=== PATIENT | female | born 1995 | race Caucasian/White ===

== ENCOUNTER 2023-05-05 16:32 | Observation (INO) | payer OTHER, BC, MEDICAID, SELFPAY ==
[2023-05-05] VITALS (8 sets, daily range): BP systolic 102–124; BP diastolic 60–70; PULSE 75–91; BMI 31.2
--- NOTE | 2023-05-05 17:06 | OBADM ---
This patient, Ashley Weems, admitted to the OB room OB Post 113 for observation. Patient/family oriented to hospital policies and general routines including ID bracelet, bed and alarms, visiting hours, pain management, procedures, bathroom and other care routines, personal items, smoking policy, room service/diet, and visiting hours. Patient/Family are encouraged to report perceived risks to care and to ask questions if they do not understand what they are told or what they should do.
[2023-05-05 17:26] LABS: Appearance Urine Clear (Clear); Bilirubin Urine Negative (Negative); Blood Urine Negative (Negative); Color Urine Yellow (Yellow); Glucose Urine UA Negative (Negative); Ketones Urine Negative (Negative); Leukocyte Esterase Ur Negative LEU/UL (Negative); Nitrate Urine Negative (Negative); Protein Urine Negative (Negative); Specific Grav Ur 1.004 (1.001-1.035); Urobilinogen Urine 0.2 mg/dL (<2.0)
--- NOTE | 2023-05-05 17:26 | PC.NURSE ---
1722: Reyna Castillo CNM phoned in for status. RN reported movement marked by patient, Category 1 tracing, uterine irritability, and a negative ROM plus test. Orders to call CNM back if urine results come back irregular and orders to send patient home if urine is clean with instructions to increase rest and fluids.
[2023-05-05 17:40] LABS: Add Urine Microscopic? NO
[2023-05-05] MEDS: NIFEdipine 30 MG TAB.ER.24 PO (18:11)
--- NOTE | 2023-05-05 18:47 | PC.NURSE ---
Spoke with Mary about patient reporting she has not felt contractions for 25 minutes. It has not been 1 hour since her procardia at 1811. Orders to continue to watch patient until the 1 hour isreal. If patient continues not to contract, orders to discharge patient with 7 day prescription for procardia XL 30 mg for 1 time a day.
--- NOTE | 2023-05-25 23:16 | PM.OBTRLD ---
OB - Triage/Final Diagnosis Visit Information Comments/Additional reasons for admission: I have assessed the risk for this patient, Ashley Weems, and determined that she would benefit from observation care. Evaluation Laboratory results: Laboratory Tests 05/05/23 16:56 Urine Color Yellow Urine Appearance Clear Urine pH 6.0 Ur Specific [place] 1.004 Urine Protein Negative Urine Glucose (UA) Negative Urine Ketones Negative Ur Blood (Man) Negative Urine Nitrate Negative Urine Bilirubin Negative Urine Urobilinogen 0.2 Leukocyte Esterase Rfl Negative Final Diagnosis (1) Amniotic fluid leaking: Code(s): O42.90 - Premature rupture of membranes, unspecified as to length of time between rupture and onset of labor, unspecified weeks of gestation Status: Acute
== END 2023-05-05 20:03 | disposition home or self-care (01) ==
PROVIDERS: Advanced Practice Midwife; Admitting Provider Obstetrics & Gynecology; PCP Physician Assistant; Visit Provider Obstetrics & Gynecology
DX: O42.90 Premature rupture of membranes, unspecified as to length of time between rupture and onset of labor, unspecified weeks of gestation (principal); Z3A.00 Weeks of gestation of pregnancy not specified
CPT/HCPCS: 81003; A9270; G0378; G0379

== ENCOUNTER 2023-06-06 09:50 | Observation (INO) | payer OTHER, BC, MEDICAID, SELFPAY ==
[2023-06-06] VITALS (10 sets, daily range): BP systolic 95–105; BP diastolic 51–66; PULSE 68–87; TEMP 36.6; BMI 32.4
[2023-06-06 10:32] LABS: Basophils Percent Auto 0.2 % (0.2-1.2); Eosinophils Absolute Auto 0.1 K/mm3 (0-0.3); Eosinophils Percent Auto 0.5 % (0-4.4); Hemoglobin 11.3 g/dL (12.0-15.0); Immature Granulocyte Absolute 0.11 K/mm3 (0.00-0.031); Immature Granulocyte Percent A 1.1 % (0-0.5); Lymphocytes Percent Auto 16.3 % (18.3-44.2); Mean Corpuscular HGB Conc 33.2 g/dl (32-36); Mean Corpuscular Hemoglobin 30.1 pg (26-34); Mean Corpuscular Volume 90.4 fl (80-100); Mean Platelet Volume 9.7 fl (7.4-10.4); Monocytes Absolute Auto 0.8 K/mm3 (0.1-0.6); Monocytes Percent Auto 7.7 % (2.6-8.5); Neutrophils Absolute Auto 7.7 K/mm3 (1.3-6.7); Neutrophils Percent Auto 74.2 % (45.5-73.1); Platelet Count Result 267 k/mm3 (150-375); Red Blood Count 3.76 M/mm3 (4.2-5.4); Red Cell Distribution Width 12.9 % (11.5-14.5); White Blood Count 10.4 K/mm3 (4.5-10.0)
[2023-06-06] MEDS: DEXTROSE 5%/LACTATED RINGERS 1,000 ML 100 ML IV CONT (10:34)
--- NOTE | 2023-06-06 10:41 | OBADM ---
This patient, Ashley Weems, admitted to the OB room OB Post 116 for observation. Patient/family oriented to hospital policies and general routines including ID bracelet, bed and alarms, visiting hours, pain management, procedures, bathroom and other care routines, personal items, smoking policy, room service/diet, and visiting hours. Patient/Family are encouraged to report perceived risks to care and to ask questions if they do not understand what they are told or what they should do.
[2023-06-06 10:44] LABS: Alanine Aminotransferase 16 U/L (6-35); Albumin Level 3.3 g/dL (3.5-5.1); Alkaline Phosphatase 108 U/L (38-126); Anion Gap 4 mmol/L (8-16); Aspartate Amino Transferase 18 U/L (14-36); Bilirubin,Total 0.3 mg/dL (0.2-1.3); Blood Urea Nitrogen 2 mg/dL (7-17); Calcium 8.1 mg/dL (8.4-10.2); Carbon Dioxide 17 mmol/L (22-30); Chloride 109 mmol/L (98-107); Estimated CRCL calculation 175 ml/min; Estimated Glomerular Filt Rate > 60; Glucose 119 mg/dL (65-110); Sodium 130 mmol/L (137-145)
[2023-06-06 11:45] LABS: Appearance Urine Clear (Clear); Bacteria Urine Rare /hpf; Bilirubin Urine Negative (Negative); Blood Urine Negative (Negative); Color Urine Yellow (Yellow); Glucose Urine UA Negative (Negative); Ketones Urine Negative (Negative); Leukocyte Esterase Ur Trace LEU/UL (Negative); Need Manual Microscopic Reviewed; Nitrate Urine Negative (Negative); Non Pathogenic Casts 0-2; Protein Urine Negative (Negative); RBC Urine 0-2 /hpf (0-2); Specific Grav Ur 1.005 (1.001-1.035); Squamous Epithelial Cell Urine None seen /hpf (Few); Urobilinogen Urine 0.2 mg/dL (<2.0); WBC Urine 0-5 /hpf
[2023-06-06 11:48] LABS: Add Urine Microscopic? YES
[2023-06-06] MEDS: POTASSIUM CHLORIDE INJ 40 MEQ in SODIUM CHLORIDE 0.9% IV 500 ML 130 MEQ IVPB (13:00)
--- NOTE | 2023-06-06 17:04 | PC.NURSE ---
1615--Reyna Castillo at bedside to assess pt. Rported pt is feeling better and may DC to home when potassium IV is infused.
--- NOTE | 2023-06-06 17:29 | PC.NURSE ---
1515--Pt snacking on crackers with minimal nausea.
--- NOTE | 2023-06-24 09:26 | P.PNOB_ITS ---
OB - Triage/Final Diagnosis Visit Information Comments/Additional reasons for admission: I have assessed the risk for this patient, Ashley Weems, and determined that she would benefit from observation care. Evaluation Laboratory results: Laboratory Tests 06/06/23 10:13 WBC 10.4 H RBC 3.76 L Hgb 11.3 L Hct 34.0 L MCV 90.4 MCH 30.1 MCHC 33.2 RDW 12.9 Plt Count 267 MPV 9.7 Immature Gran % (Auto) 1.1 H Neut % (Auto) 74.2 H Lymph % (Auto) 16.3 L [place] % (Auto) 7.7 Eos % (Auto) 0.5 Baso % (Auto) 0.2 Lymph # (Auto) 1.70 [place] # (Auto) 0.8 H Eos # (Auto) 0.1 Baso # (Auto) 0.0 Abs Immat Gran (auto) 0.11 H Absolute Neuts (auto) 7.7 H Absolute Nucleated RBC 0.0 Nucleated RBC % 0.0 Sodium 130 L Potassium 3.0 L Chloride 109 H Carbon Dioxide 17 L Anion Gap 4 L BUN 2 L Creatinine 0.40 L Estim Creat Clear Calc 175 Estimated GFR > 60 Glucose 119 H Calcium 8.1 L Total Bilirubin 0.3 AST 18 ALT 16 Alkaline Phosphatase 108 Total Protein 6.0 L Albumin 3.3 L Urine Color Yellow Urine Appearance Clear Urine pH 6.0 Ur Specific [place] 1.005 Urine Protein Negative Urine Glucose (UA) Negative Urine Ketones Negative Ur Blood (Man) Negative Urine Nitrate Negative Urine Bilirubin Negative Urine Urobilinogen 0.2 Add Ur Microanalysis Reviewed Leukocyte Esterase Rfl Trace H Urine RBC 0-2 Urine WBC 0-5 Ur Squamous Epith Cells None seen Urine Bacteria Rare Urine Casts 0-2 Final Diagnosis (1) Amniotic fluid leaking: Code(s): O42.90 - Premature rupture of membranes, unspecified as to length of time between rupture and onset of labor, unspecified weeks of gestation Status: Acute
== END 2023-06-06 17:11 | disposition home or self-care (01) ==
PROVIDERS: Advanced Practice Midwife; Admitting Provider Obstetrics & Gynecology; PCP Physician Assistant; Visit Provider Obstetrics & Gynecology
DX: O42.913 Preterm premature rupture of membranes, unspecified as to length of time between rupture and onset of labor, third trimester (principal); Z3A.32 32 weeks gestation of pregnancy
CPT/HCPCS: 36415; 80053; 81001; 85025; 96374; G0378; G0379; J3480; J7040; J7121

== ENCOUNTER 2023-07-12 23:15 | Observation (INO) | payer OTHER, MEDICAID, SELFPAY ==
--- NOTE | 2023-07-12 23:15 | OBADM ---
This patient, Ashley Weems, admitted to the OB room Labor/Delivery/Recovery 106 for observation. Patient/family oriented to hospital policies and general routines including ID bracelet, bed and alarms, visiting hours, pain management, procedures, bathroom and other care routines, personal items, smoking policy, room service/diet, and visiting hours. Patient/Family are encouraged to report perceived risks to care and to ask questions if they do not understand what they are told or what they should do.
[2023-07-12 23:31] VITALS: BP 131/69; PULSE 86; RESP 16; TEMP 36.8
[2023-07-12 23:53] VITALS: BMI 33.6
--- NOTE | 2023-07-13 01:20 | PC.NURSE ---
Updated Dr. Grant on maternal and assessments including; SVE unchanged after monitoring, VSS, Contractions irregular 1-10minutes apart and palpate mild with soft abdomen between, FHT appropriate for gestational age. Discharge orders received.
--- NOTE | 2023-07-13 01:35 | PC.NURSE ---
Discharge instructions reviewed with patient. Labor precautions reviewed. Patient states understanding of all discharge instructions and education.
--- NOTE | 2023-08-04 21:04 | PM.OBTRLD ---
OB - Triage/Final Diagnosis Visit Information Comments/Additional reasons for admission: I have assessed the risk for this patient, Ashley Weems, and determined that she would benefit from observation care. Final Diagnosis (1) False labor: Code(s): O47.9 - False labor, unspecified Status: Acute
== END 2023-07-13 01:35 | disposition home or self-care (01) ==
PROVIDERS: Admitting Provider Obstetrics & Gynecology; PCP Physician Assistant; Visit Provider Obstetrics & Gynecology
DX: O47.9 False labor, unspecified (principal); O47.1 False labor at or after 37 completed weeks of gestation; Z3A.37 37 weeks gestation of pregnancy
CPT/HCPCS: G0378; G0379

== ENCOUNTER 2023-07-15 22:26 | Observation (INO) | payer OTHER, MEDICAID, SELFPAY ==
[2023-07-16 00:13] VITALS: BMI 25.7
--- NOTE | 2023-07-16 17:54 | PM.OBTRLD ---
OB - Triage/Final Diagnosis Visit Information Date of evaluation: 07/15/23 Comments/Additional reasons for admission: I have assessed the risk for this patient, Ashley Kira Weems, and determined that she would benefit from observation care.
--- NOTE | 2023-07-17 08:04 | PM.OBTRLD ---
OB - Triage/Final Diagnosis Visit Information Date of evaluation: 07/15/23 Reason for evaluation: threatened labor Comments/Additional reasons for admission: I have assessed the risk for this patient, Ashley Kira Weems, and determined that she would benefit from observation care.
== END 2023-07-16 00:08 | disposition home or self-care (01) ==
PROVIDERS: Admitting Provider Obstetrics & Gynecology; PCP Physician Assistant; Visit Provider Obstetrics & Gynecology
DX: O47.1 False labor at or after 37 completed weeks of gestation (principal); Z3A.37 37 weeks gestation of pregnancy
CPT/HCPCS: 99199; G0378; G0379

== ENCOUNTER 2023-07-26 04:56 | Inpatient (IN) | payer OTHER, MEDICAID, SELFPAY ==
[2023-07-26] VITALS (40 sets, daily range): BP systolic 63–139; BP diastolic 23–96; PULSE 56–138; RESP 16–18; TEMP 36.1–37.2; O2SAT 66–100; BMI 33.8
[2023-07-26 05:21] LABS: Basophils Percent Auto 0.2 % (0.2-1.2); Eosinophils Absolute Auto 0.1 K/mm3 (0-0.3); Eosinophils Percent Auto 0.7 % (0-4.4); Hematocrit 38.9 % (37.0-47.0); Hemoglobin 12.6 g/dL (12.0-15.0); Immature Granulocyte Absolute 0.13 K/mm3 (0.00-0.031); Lymphocytes Absolute Auto 2.55 K/mm3 (0.9-3.2); Lymphocytes Percent Auto 20.4 % (18.3-44.2); Mean Corpuscular HGB Conc 32.4 g/dl (32-36); Mean Corpuscular Hemoglobin 29.1 pg (26-34); Mean Corpuscular Volume 89.8 fl (80-100); Mean Platelet Volume 10.1 fl (7.4-10.4); Monocytes Absolute Auto 0.6 K/mm3 (0.1-0.6); Monocytes Percent Auto 5.1 % (2.6-8.5); Neutrophils Absolute Auto 9.1 K/mm3 (1.3-6.7); Neutrophils Percent Auto 72.6 % (45.5-73.1); Platelet Count Result 289 k/mm3 (150-375); Red Blood Count 4.33 M/mm3 (4.2-5.4); Red Cell Distribution Width 13.2 % (11.5-14.5); White Blood Count 12.5 K/mm3 (4.5-10.0)
[2023-07-26] MEDS: LACTATED RINGERS 1,000 ML 125 ML IV CONT (05:36)
[2023-07-26] MEDS: OXYTOCIN 30 UNITS/NS 500 ML 30 UNITS/500 ML BAG IV CONT (05:39)
--- NOTE | 2023-07-26 07:19 | WPDOBADMIT ---
Obstetrics - Admit Note Admission Note: record reviewed. No pertinent additions to the history and/or any subsequent changes in the physical findings that are not consistent with the expected course of the were found. Elective IOL, uncomplicated Additions to the history and/or subsequent changes in the physical findings follow. None.
--- NOTE | 2023-07-26 08:36 | WPDANESEPPF ---
Anes - Initial Pre Proc Eval Date/Time: 07/26/23 08:36 Surgeon: Mary Castillo CNM Pre Op Diagnosis: IOL Patient Data Age: 28 Gender: F Height: 1.57 m Weight: 84 kg Last Vital Signs Temp 36.3 C L 07/26/23 07:23 Pulse 82 07/26/23 08:35 BP 112/43 L 07/26/23 08:35 Pulse Ox 100 07/26/23 08:34 O2 Del Method Room Air 07/26/23 05:10 Allergies Allergy/AdvReac Type Severity Reaction Status Date / Time No Known Allergies Allergy Verified 07/15/23 14:31 Home Medications Medication Instructions Recorded Confirmed Type ondansetron HCl 4 mg tablet 4 mg PO PRN nausea 07/15/23 07/15/23 History vit#24-iron amino acid 1 tablet PO DAILY 07/15/23 07/15/23 History chelat-folic acid 30 mg-975 mcg tablet scopolamine base 1 mg over 3 days See Rx Instructions .Route .COMPLEX 07/15/23 07/15/23 History transdermal patch sertraline 25 mg tablet 25 mg PO DAILY 07/15/23 07/15/23 History Laboratory Tests 07/26/23 05:13 WBC 12.5 H K/mm3 (4.5-10.0) RBC 4.33 M/mm3 (4.2-5.4) Hgb 12.6 g/dL (12.0-15.0) Hct 38.9 % (37.0-47.0) MCV 89.8 fl (80-100) MCH 29.1 pg (26-34) MCHC 32.4 g/dl (32-36) RDW 13.2 % (11.5-14.5) Plt Count 289 k/mm3 (150-375) MPV 10.1 fl (7.4-10.4) Immature Gran % (Auto) 1.0 H % (0-0.5) Neut % (Auto) 72.6 % (45.5-73.1) Lymph % (Auto) 20.4 % (18.3-44.2) [place] % (Auto) 5.1 % (2.6-8.5) Eos % (Auto) 0.7 % (0-4.4) Baso % (Auto) 0.2 % (0.2-1.2) Lymph # (Auto) 2.55 K/mm3 (0.9-3.2) [place] # (Auto) 0.6 K/mm3 (0.1-0.6) Eos # (Auto) 0.1 K/mm3 (0-0.3) Baso # (Auto) 0.0 K/mm3 (0.0-0.1) Abs Immat Gran (auto) 0.13 H K/mm3 (0.00-0.031) Absolute Neuts (auto) 9.1 H K/mm3 (1.3-6.7) Absolute Nucleated RBC 0.0 K/mm3 (0.0-0.012) Nucleated RBC % 0.0 % (0.0-0.2) RPR Pending Blood Type O Positive Antibody Screen Negative Patient hx anesthesia problems: none Family hx anesthesia problems: none Results Review: All pre-operative results and documents have been reviewed as part of the pre-operative evaluation. [facility] Family History Family History Other Diabetes mellitus Family history of malignant neoplasm Social History Social History Smoking status: Never smoker Alcohol intake: current Substance use: never Lack of Transportation: No Lack of Food: Never True Current Housing: I Have Housing Concerned About Future Housing: No Difficulty Paying Gas/Electric Bills: No Difficulty Paying for Meds: No Currently Unemployed: YES Education: Bachelor's Degree Difficulty w/ Childcare or Family Care: No Spiritual care concerns: No Anes - Eval Final PreProcedure Day of Procedure 07/26/23 08:36 Patient weight: obese Neurological: alert and oriented ASA classification: II Emergent: no Anesthetic plan: proceed Anesthesia type and monitoring: regional epidural and standard monitoring Results Review: All pre-operative results and documents have been reviewed as part of the pre-operative evaluation. Informed Consent: The patient's anesthetic plan and its attendant risks and benefits were discussed with the patient/family/POA. Questions were solicited and answers provided to the satisfaction of the patient/family/POA.
--- NOTE | 2023-07-26 09:01 | PM.OBPRVD ---
OB - Delivery Note Procedure Delivery date: 07/26/23 Procedure: Induction method: Per Pitocin Protocol Delivery monitor: External FHT and External Uterine Route of delivery: Laceration Description: None Specimen: No Quantitative Blood Loss (ml): 50 Anesthesia type: Epidural Disposition: Floor [place] Baby Date of : 07/26/23 Time of : 08:44 Weeks of gestation at delivery: 39 gender: Female Weight (pounds): 7 Weight (ounces): 0 presentation: vertex position: Left Occiput Anterior Placenta delivery description: Spontaneous Cord Vessel Description: 3 Vessels, Clamped/Cut, Delayed Cord Clamping and Around Body (x1) score one minute: 8 score five minutes: 9 Narrative: mother and baby skin to skin in stable condition
[2023-07-26] MEDS: OXYTOCIN 30 UNITS/NS 500 ML 30 UNITS/500 ML BAG 125 UNITS IV CONT (09:42)
[2023-07-26] MEDS: IBUPROFEN 600 MG TABLET PO ×2 (13:12→23:25)
[2023-07-26] MEDS: SERTRALINE HCL 25 MG TABLET PO (13:16)
--- NOTE | 2023-07-26 16:27 | OBPPTRN ---
1155-Patient transferred to post room #277 via wheelchair. Support person present. Oriented to unit, room, information board, rooming in, admission packet and security measures. Patient verbalizes understanding.
[2023-07-27] MEDS: IBUPROFEN 600 MG TABLET PO (05:05)
[2023-07-27 05:15] LABS: Hematocrit 39.1 % (37.0-47.0)
[2023-07-27 08:00] VITALS: BP 115/73; PULSE 71; RESP 16; TEMP 36.6; O2SAT 98
--- NOTE | 2023-07-27 08:20 | PM.OBPNVD ---
OB - PN: Subj Subjective Date/time seen: 07/27/23 08:20 Interval history: pp day 1 doing well no complaints OB - PN: Obj Data Labs 07/27/23 05:04 Labs: Laboratory Results - last 24 hr 07/27/23 05:04 Hgb 11.0 L Hct 39.1 OB - PN A/P Plan day: 1 Plan: routine care and discharge home Time Spent With Patient Time: Total time spent is greater than 50% in coordination of care (as documented) at patient's floor/unit and/or counseling patient: Review of Systems Review of Systems: All systems reviewed & are unremarkable except as noted in HPI and below Exam Const: General: cooperative, healthy appearing and comfortable Chest: Chest palpation & inspection: normal inspection of the chest Resp: Effort & Inspection: normal respiratory effort Cardio: Rate: regular rate Rhythm: regular rhythm GI: Other: soft Skin: General skin exam: normal color Neuro: General: patient oriented x3 Extrem: Right lower extremity: normal to inspection Left lower extremity: normal to inspection Psych: Appearance: grossly normal
--- NOTE | 2023-07-27 08:23 | PM.OBDSVD ---
DS: Admitting Diagnosis Discharge Date 07/27/23 Admitting Diagnosis iol DS: Discharge Diagnosis Discharge Diagnosis (1) Vaginal delivery: Code(s): O80 - Encounter for full-term uncomplicated delivery Status: Acute OB - DS: Summary OB Procedures : None OB Procedures Intrapartum: Spontaneous Vag Delivery OB Procedures: : None Time Spent with Patient Time attestation: Total time spent providing and/or coordinating discharge services: DS: Data Data Completed and Pending Labs on day of discharge: Labs from last 24 hours 07/27/23 05:04 Hgb 11.0 L Hct 39.1 Discharge Plan Discharge Attending physician on discharge: Yesy Grant Discharging Clinician: Mary Castillo Patient Disposition: Home, Self-Care Activity: pelvic rest Diet: regular Patient Instructions: Antibiotic Form Stand Alone Forms: General Discharge Information Follow-up/Referrals: Mary Castillo CNM [Certified Nurse Treating Inspector] - 4 Weeks Discharge Medications: New ibuprofen 600 mg Tablet 600 mg PO Q6H PRN (Reason: Cramping) Qty: 30 0RF Continued PNV no.81-xwuz-jruul acid 30-975 mg-mcg Tablet 1 tablet PO DAILY ondansetron HCl 4 mg tablet 4 mg PO PRN sertraline 25 mg tablet 25 mg PO DAILY Discontinued scopolamine base 1 mg over 3 days patch 3 day See Rx Instructions .ROUTE .COMPLEX Rx Instructions: 1 patch transdermally every 72 hours. Date of admission: 07/26/23 04:56 Primary Care Provider: ShrutiEarle Admitting Provider: Yesy Grant Attending physician on admission: Mayr Castillo Condition: Stable
[2023-07-27] MEDS: SERTRALINE HCL 25 MG TABLET PO (09:01)
[2023-07-27] MEDS: DOCUSATE SODIUM 100 MG CAPSULE PO (09:01)
[2023-07-27] MEDS: MULTIVIT/MIN/PREN/FOL AC/IRON TABLET 1 TAB PO (09:01)
--- NOTE | 2023-07-27 09:06 | PC.NURSE ---
Patient was given the opportunity to view the discharge video Mother & Baby Care, The First Two Weeks and to ask questions. Patient declined viewing the video and has been given the mother/baby guide for home reference.
[2023-07-28 09:21] VITALS: BP 122/77; PULSE 99; RESP 18; TEMP 36.7; O2SAT 99
[2023-07-28 13:36] LABS: Rapid Plasma Reagin Non-Reactive (NonReactive)
--- OUTSIDE RECORDS SUMMARY | 2023-07-29 12:05 | XMS_ITS | Patient Health Record ---
Author Name Unknown Organization [facility] Address [address] [place] [address] Care Team Providers Care Stamp Redemption Clerk Name Role Phone Earle Bahena Primary Care Provider Eliot Randle MD, Sandro Unavailable Unavailable REASON FOR REFERRAL No Information MEDICATIONS Medication SIG (Take, Route, Frequency, Duration) Notes Start Date End Date Status Probiotic - as directed Orally Active Nortriptyline HCl 25 MG 2 capsule Orally Once a day at bedtime for 30 day(s) Active Hyoscyamine Sulfate SL 0.125 MG 1 tablet under the tongue and allow to dissolve as needed Sublingual every 4 hours or before meals and at bedtime as needed for 30 days 08/21/2018 Active LORazepam 1 MG 1 tablet Orally Once a day in the morning Active Pantoprazole Sodium 40 MG 1 tablet Orall y Once a day for 30 day(s) Active Ondansetron 4 DISSOLVE 1 TABLET ON TONGUE EVERY 4 HOURS NEEDED FOR NAUSEA AND VOMITING for 2 Active SOCIAL HISTORY Sex Assigned At : Social History Observation Description Sex Assigned At Unknown PROBLEMS Problem Type ICD Code Onset Dates Problem Status W/U Status Risk SNOMED Code Notes Problem Spasm of sphincter of Oddi (K8
== END 2023-07-27 13:40 | disposition home or self-care (01) | DRG 807 ==
LOC: ANHLDR 04:58 → ANHOB2 11:54
PROVIDERS: Admitting Provider Obstetrics & Gynecology; PCP Physician Assistant; Visit Provider Advanced Practice Midwife
DX: O69.82X0 Labor and delivery complicated by other cord entanglement, without compression, not applicable or unspecified (principal); Z37.0 Single live birth; Z3A.39 39 weeks gestation of pregnancy; Z23 Encounter for immunization
CPT/HCPCS: 36415; 85014; 85018; 85025; 86592; 86850; 86900; 86901; 90471; 90686; A9270; G0008; J2590; J2795; J7120